=== PATIENT | female | born 1955 | race Caucasian/White ===

== ENCOUNTER 2017-11-20 02:55 | Outpatient (CLI) | payer MEDICARE, OTHER ==
[~2017-11-20 02:55] MED LIST: CALC-964 PO; CHOL400C8 PO; CLON-529 PO; CYAN50003 PO; LEVO175T52 PO; METF1000 PO; MILN1TAB PO; MULT-1085 PO; OMEP-84 PO; SYN0.0125T PO; VITA200T6 PO; WEL625T PO; ZET10T PO; [UNRECOGNIZED DRUG - CODE] PO; [UNRECOGNIZED DRUG - CODE] PO
== END 2017-11-20 23:59 | disposition home or self-care (01) ==
LOC: DIABETIC 02:55
PROVIDERS: ATTEND Specialist
DX: E11.65 Type 2 diabetes mellitus with hyperglycemia (principal); I10 Essential (primary) hypertension; Z87.891 Personal history of nicotine dependence
CPT/HCPCS: G0108

== ENCOUNTER 2018-01-15 12:41 | Day surgery (SDC) | payer MEDICARE, OTHER ==
[2018-01-15] MEDS ORDERED: fentaNYL/PF 50MCG/1 ML 2ML syringe ONE (12:56)
[2018-01-15] MEDS ORDERED: MIDAZolam 5mg/5ml vial ONE (12:57)
[2018-01-15] MEDS ORDERED: METO-539 PO (13:05)
[2018-01-15] MEDS ORDERED: AMLO2.5T2 PO (13:05)
[2018-01-15] MEDS ORDERED: HYDR25TA4 PO (13:07)
[2018-01-15] MEDS ORDERED: VILA40TA PO (13:08)
[2018-01-15 13:19] VITALS: BP 151/94
[2018-01-15] MEDS ORDERED: FERR-116 PO (13:21)
[2018-01-15] MEDS ORDERED: VITAMIN B 12 INJECT (13:21)
[2018-01-15 14:05] VITALS: BP 132/62
[2018-01-15 14:14] VITALS: BP 123/78
[2018-01-15 14:24] VITALS: BP 138/72
[2018-01-15 14:34] VITALS: BP 120/70
== END 2018-01-15 14:50 | disposition home or self-care (01) ==
LOC: GI LAB 12:41
PROVIDERS: ATTEND Internal Medicine Gastroenterology
DX: K57.30 Diverticulosis of large intestine without perforation or abscess without bleeding (principal); D72.1 Eosinophilia; E11.9 Type 2 diabetes mellitus without complications; F32.9 Major depressive disorder, single episode, unspecified; F43.10 Post-traumatic stress disorder, unspecified; I10 Essential (primary) hypertension; K21.9 Gastro-esophageal reflux disease without esophagitis; Z87.891 Personal history of nicotine dependence; Z98.84 Bariatric surgery status; Z90.49 Acquired absence of other specified parts of digestive tract; Z90.710 Acquired absence of both cervix and uterus; Z79.891 Long term (current) use of opiate analgesic; Z96.612 Presence of left artificial shoulder joint; Z98.890 Other specified postprocedural states; Z79.899 Other long term (current) drug therapy
CPT/HCPCS: 45380; G0500; J2250; J3010; J7030; 88305; A4620

== ENCOUNTER 2018-05-29 12:45 | Outpatient (CLI) | payer MEDICARE, OTHER ==
[~2018-05-29] VITALS: Ht 170.2 cm; Wt 99.8 kg
[~2018-05-29 12:45] MED LIST changes: +AMLO2.5T2 PO; -CALC-964 PO; -CLON-529 PO; -CYAN50003 PO; +FERR-116 PO; +HYDR25TA4 PO; -METF1000 PO; +METO-539 PO; -SYN0.0125T PO; +VILA40TA PO; -VITA200T6 PO; +VITAMIN B 12 INJECT; -WEL625T PO; -ZET10T PO; -[UNRECOGNIZED DRUG - CODE] PO; -[UNRECOGNIZED DRUG - CODE] PO
[2018-05-29 13:10] LABS: TOTAL HEMOGLOBIN 14.1 G/dl (12.0-16.0)
[2018-05-29] MEDS ORDERED: albuterol 2.5 MG/3 ML nebule NEB ONE (13:35)
== END 2018-05-29 23:59 | disposition home or self-care (01) ==
LOC: RT 12:45
PROVIDERS: ATTEND Internal Medicine Pulmonary Disease
DX: J44.9 Chronic obstructive pulmonary disease, unspecified (principal); R06.09 Other forms of dyspnea; F17.210 Nicotine dependence, cigarettes, uncomplicated; I10 Essential (primary) hypertension; E11.9 Type 2 diabetes mellitus without complications; Z90.710 Acquired absence of both cervix and uterus; Z79.899 Other long term (current) drug therapy
CPT/HCPCS: 85018; 94060; 94727; 94729

== ENCOUNTER 2018-06-21 07:24 | Outpatient (CLI) | payer MEDICARE, OTHER ==
[2018-06-21 08:09] LABS: ANION GAP 9 (8-16); CHLORIDE 104 MMOL/L (99-107); SODIUM 143 MMOL/L (135-145); TOTAL CARBON DIOXIDE 29.6 MMOL/L (24-32)
== END 2018-06-21 23:59 | disposition home or self-care (01) ==
LOC: LAB 07:24
PROVIDERS: ATTEND Specialist
DX: E11.65 Type 2 diabetes mellitus with hyperglycemia (principal); I10 Essential (primary) hypertension; Z79.899 Other long term (current) drug therapy; Z87.891 Personal history of nicotine dependence; Z90.710 Acquired absence of both cervix and uterus
CPT/HCPCS: 36415; 80051

== ENCOUNTER → 2018-06-24 | Outpatient (CLI) | payer MEDICARE, OTHER ==
[2018-06-24 11:35] LABS: ANION GAP 10 (8-16); CHLORIDE 102 MMOL/L (99-107); POTASSIUM 3.8 MMOL/L (3.5-5.1); SODIUM 142 MMOL/L (135-145); TOTAL CARBON DIOXIDE 30.2 MMOL/L (24-32)
== END | disposition home or self-care (01) ==
LOC: LAB 10:39
PROVIDERS: ATTEND Specialist
DX: E11.65 Type 2 diabetes mellitus with hyperglycemia (principal); I10 Essential (primary) hypertension; Z87.891 Personal history of nicotine dependence; Z90.710 Acquired absence of both cervix and uterus; Z79.899 Other long term (current) drug therapy
CPT/HCPCS: 36415; 80051

== ENCOUNTER 2018-06-27 08:42 | Outpatient (CLI) | payer MEDICARE, OTHER ==
[2018-06-27 09:42] LABS: ANION GAP 12 (8-16); CHLORIDE 102 MMOL/L (99-107); POTASSIUM 4.4 MMOL/L (3.5-5.1); SODIUM 140 MMOL/L (135-145); TOTAL CARBON DIOXIDE 26.4 MMOL/L (24-32)
== END 2018-06-27 23:59 | disposition home or self-care (01) ==
LOC: LAB 08:42
PROVIDERS: ATTEND Specialist
DX: E11.65 Type 2 diabetes mellitus with hyperglycemia (principal); I10 Essential (primary) hypertension; Z90.710 Acquired absence of both cervix and uterus; Z79.899 Other long term (current) drug therapy; Z87.891 Personal history of nicotine dependence
CPT/HCPCS: 36415; 80051

== ENCOUNTER → 2018-07-01 | Outpatient (CLI) | payer MEDICARE, OTHER ==
[2018-07-01 10:35] LABS: ANION GAP 14 (8-16); CHLORIDE 98 MMOL/L (99-107); POTASSIUM 3.7 MMOL/L (3.5-5.1); SODIUM 137 MMOL/L (135-145)
== END | disposition home or self-care (01) ==
LOC: LAB 09:59
PROVIDERS: ATTEND Specialist
DX: E11.65 Type 2 diabetes mellitus with hyperglycemia (principal); I10 Essential (primary) hypertension; Z96.612 Presence of left artificial shoulder joint; Z90.710 Acquired absence of both cervix and uterus; Z87.891 Personal history of nicotine dependence; Z79.899 Other long term (current) drug therapy
CPT/HCPCS: 36415; 80051

== ENCOUNTER 2018-07-08 10:56 | Outpatient (CLI) | payer MEDICARE, OTHER ==
[2018-07-08 11:41] LABS: ANION GAP 16 (8-16); CHLORIDE 101 MMOL/L (99-107); POTASSIUM 3.2 MMOL/L (3.5-5.1); SODIUM 141 MMOL/L (135-145); TOTAL CARBON DIOXIDE 23.6 MMOL/L (24-32)
== END 2018-07-08 23:59 | disposition home or self-care (01) ==
LOC: LAB 10:56
PROVIDERS: ATTEND Specialist
DX: E11.65 Type 2 diabetes mellitus with hyperglycemia (principal); I10 Essential (primary) hypertension; Z79.899 Other long term (current) drug therapy; Z87.891 Personal history of nicotine dependence; Z88.8 Allergy status to other drugs, medicaments and biological substances
CPT/HCPCS: 36415; 80051

== ENCOUNTER 2019-01-16 21:15 | Emergency (ER) | payer MEDICARE, OTHER ==
[~2019-01-16] VITALS: Ht 172.7 cm; Wt 108.0 kg
[2019-01-16 21:27] VITALS: BP 149/81
[2019-01-16] MEDS ORDERED: ketorolac trometh. 30mg/ml inj. IV ONE (23:30)
[2019-01-16] MEDS ORDERED: morphine 4 MG/ML inj SYRINge IV ONE (23:30)
[2019-01-16] MEDS ORDERED: ondansetron/PF 4mg/2ml inj IV ONE (23:30)
[2019-01-16] MEDS ORDERED: acetaminophen 325mg tablet PO ONE (23:30)
[2019-01-17] MEDS ORDERED: HYDROcodone/acetaminophen 5mg/325mg tablet PO ONE (00:25)
[2019-01-17] MEDS ORDERED: HYDR-3965 PO (00:30)
[2019-01-17] MEDS ORDERED: morphine 4 MG/ML inj SYRINge IM ONE (01:35)
== END 2019-01-17 01:50 | disposition home or self-care (01) ==
LOC: ER 21:16
DX: S82.831A Other fracture of upper and lower end of right fibula, initial encounter for closed fracture (principal); S82.141A Displaced bicondylar fracture of right tibia, initial encounter for closed fracture; M54.2 Cervicalgia; E11.9 Type 2 diabetes mellitus without complications; E05.00 Thyrotoxicosis with diffuse goiter without thyrotoxic crisis or storm; Z90.49 Acquired absence of other specified parts of digestive tract; Z90.710 Acquired absence of both cervix and uterus; Z98.84 Bariatric surgery status; Z98.890 Other specified postprocedural states; Z88.8 Allergy status to other drugs, medicaments and biological substances; Z79.899 Other long term (current) drug therapy; W01.10XA Fall on same level from slipping, tripping and stumbling with subsequent striking against unspecified object, initial encounter; Y93.89 Activity, other specified; Y92.89 Other specified places as the place of occurrence of the external cause; Y99.8 Other external cause status
CPT/HCPCS: 29505; 73564; 96372; 96374; 96375; 99283; J1885; J2270; J2405

== ENCOUNTER 2019-01-20 13:04 | Emergency (ER) | payer MEDICARE, OTHER ==
[~2019-01-20] VITALS: Ht 172.7 cm; Wt 104.5 kg
[~2019-01-20 13:04] MED LIST changes: +HYDR-3965 PO
[2019-01-20] MEDS ORDERED: HYDR-4383 PO (14:25)
[2019-01-20] MEDS ORDERED: GABA-530 PO (14:25)
[2019-01-20 14:38] VITALS: BP 129/70
== END 2019-01-20 14:40 | disposition home or self-care (01) ==
LOC: ER 13:04
DX: S82.831D Other fracture of upper and lower end of right fibula, subsequent encounter for closed fracture with routine healing (principal); E11.9 Type 2 diabetes mellitus without complications; E05.00 Thyrotoxicosis with diffuse goiter without thyrotoxic crisis or storm; Z90.49 Acquired absence of other specified parts of digestive tract; Z90.710 Acquired absence of both cervix and uterus; Z98.890 Other specified postprocedural states; Z87.442 Personal history of urinary calculi; Z79.899 Other long term (current) drug therapy; X58.XXXD Exposure to other specified factors, subsequent encounter
CPT/HCPCS: 99284

== ENCOUNTER 2020-07-30 05:49 | Emergency (ER) | payer MEDICARE, OTHER ==
[~2020-07-30] VITALS: Ht 172.7 cm; Wt 104.5 kg
[~2020-07-30 05:49] MED LIST changes: +GABA-530 PO; -HYDR-3965 PO; +HYDR-4383 PO
[2020-07-30] MEDS ORDERED: ondansetron/PF 4mg/2ml inj IV STA (05:59)
[2020-07-30] MEDS ORDERED: normal saline 1000ml 1,000 ML IVB ONE (06:00)
[2020-07-30 06:29] LABS: CLARITY,URINE SLIGHTLY CLOUDY (Clear); COLOR,URINE YELLOW (Yellow); GLUCOSE, URINE NEGATIVE (Neg); KETONES,URINE TRACE mg/dl (Neg); LEUKOCYTE ESTERASE ,URINE NEGATIVE (Neg); NITRITES, URINE NEGATIVE (Neg); OCCULT BLOOD,URINE NEGATIVE (Neg); PROTEIN,URINE TRACE mg/dl (Neg)
[2020-07-30] MEDS ORDERED: morphine 4 MG/ML inj SYRINge IV PRN (06:30)
[2020-07-30 06:31] LABS: UA COLLECTION TYPE CLN CATCH MIDSTREAM
[2020-07-30 06:35] LABS: BACTERIA,URINE FEW /HPF (Neg); CAL OXALATE CRYSTALS 3+ /HPF (NEGATIVE); FINE GRANULAR CAST 0-3 /LPF (NEGATIVE); MUCUS STRANDS FEW /LPF (Neg); RBC,URINE NONE SEEN /HPF (0-2); SQUAMOUS EPITHELIAL CELL,UR FEW /LPF (FEW); WBC,URINE 0-4 /HPF (0-4)
[2020-07-30 06:43] LABS: BASOPHILS # (AUTO) 0.1 X10'3 (0-0.2); BASOPHILS % (AUTO) 1.2 % (0-1); EOSINOPHILS # (AUTO) 0.2 X10'3 (0-0.9); EOSINOPHILS % (AUTO) 2.2 % (0-6); HEMATOCRIT 47.9 % (35.0-45.0); HEMOGLOBIN 16.2 g/dl (12.0-16.0); LYMPHOCYTES # (AUTO) 4.4 X10'3 (1.1-4.8); LYMPHOCYTES % (AUTO) 44.7 % (21-51); MEAN CORPUSCULAR HGB CONC 33.8 g/dL (33.0-36.5); MEAN CORPUSCULAR VOLUME 85.8 FL (78-98); MEAN PLATELET VOLUME 9.2 FL (7.4-10.4); MONOCYTES # (AUTO) 0.8 X10'3 (0-0.9); MONOCYTES % (AUTO) 8.2 % (2-12); NEUTROPHILS # (AUTO) 4.3 X10'3 (1.8-7.7); NEUTROPHILS % (AUTO) 43.7 % (42-75); PLATELET COUNT 270 X10'3 (140-440); RED BLOOD COUNT 5.58 X10'6 (4.20-5.60); RED CELL DISTRIBUTION WIDTH 17.5 % (11.5-14.5); WHITE BLOOD COUNT 9.8 X10'3 (4.5-11.0)
[2020-07-30 06:57] LABS: ALBUMIN 4.1 G/DL (3.4-5.0); ANION GAP 13 (8-16); BILIRUBIN,TOTAL 0.4 MG/DL (0.1-1.0); BLOOD UREA NITROGEN 10 MG/DL (7-18); BUN/CREATININE RATIO 10.6 (6.6-38.0); CALCIUM 9.5 MG/DL (8.5-10.1); CHLORIDE 102 MMOL/L (99-107); CREATININE 0.94 MG/DL (0.40-0.90); GLUCOSE 195 MG/DL (70-104); POTASSIUM 3.7 MMOL/L (3.5-5.1); SODIUM 140 MMOL/L (135-145); TOTAL CARBON DIOXIDE 24.9 MMOL/L (24-32); eGFR 60 ML/MIN
[2020-07-30 06:58] LABS: ALANINE AMINOTRANSFERASE 100 U/L (12-78); ALBUMIN/GLOBULIN RATIO 1.1 (1.1-1.5); ALKALINE PHOSPHATASE 147 IU/L (46-116); ASPARTATE AMINO TRANSFERASE 56 U/L (10-37)
[2020-07-30 07:15] LABS: LIPASE 121 U/L (73-393)
[2020-07-30] MEDS ORDERED: ONDA4TAB6 PO (07:27)
[2020-07-30] MEDS ORDERED: HYDR-3965 PO (07:27)
[2020-07-30 07:28] VITALS: BP 122/61
== END 2020-07-30 08:35 | disposition home or self-care (01) ==
LOC: ER 05:50
DX: N20.0 Calculus of kidney (principal); B34.9 Viral infection, unspecified; R10.31 Right lower quadrant pain; K59.00 Constipation, unspecified; E11.65 Type 2 diabetes mellitus with hyperglycemia; R50.9 Fever, unspecified; R53.1 Weakness; R51.9 Headache, unspecified; Z90.49 Acquired absence of other specified parts of digestive tract; Z90.710 Acquired absence of both cervix and uterus; Z98.890 Other specified postprocedural states; Z79.899 Other long term (current) drug therapy
CPT/HCPCS: 36415; 74176; 80053; 81001; 82948; 83690; 84443; 85025; 96361; 96374; 96375; 99284; J2270; J2405; J7030